=== PATIENT | male | born 1985 ===

== ENCOUNTER 2018-02-20 06:54 | Day surgery (SDC) | payer BC ==
[2018-02-17 10:08] VITALS: BMI 27.7
[2018-02-20] MEDS ORDERED: Propofol 10 mg/ml Inj (20 ML) ONE (08:11)
[2018-02-20 08:44] VITALS: O2SAT 99
[2018-02-20] MEDS ORDERED: Sodium Chloride 0.9% 1,000 ML IV SCH (09:00)
[2018-02-20 09:16] VITALS: BP 110/71; PULSE 70; RESP 16; TEMP 98.4
== END 2018-02-20 09:53 | disposition home or self-care (01) ==
LOC: ENDO 06:54
PROVIDERS: ATTEND Internal Medicine Gastroenterology
DX: K25.9 Gastric ulcer, unspecified as acute or chronic, without hemorrhage or perforation (principal); K26.9 Duodenal ulcer, unspecified as acute or chronic, without hemorrhage or perforation; K29.80 Duodenitis without bleeding; K29.50 Unspecified chronic gastritis without bleeding; R10.13 Epigastric pain; I10 Essential (primary) hypertension; E11.9 Type 2 diabetes mellitus without complications; E78.5 Hyperlipidemia, unspecified; Z86.19 Personal history of other infectious and parasitic diseases
CPT/HCPCS: 43239; 82948; 88305; 88342; J2001; J2704; J7030; J7040